=== PATIENT | female | born 1965 | race Caucasian/White ===

== ENCOUNTER → 2016-10-06 | Outpatient (REF) | payer BC | LOC: M LAB REF 16:07 | PROVIDERS: ATTEND Ophthalmology | DX: H02.831 Dermatochalasis of right upper eyelid (principal); H02.834 Dermatochalasis of left upper eyelid ==

== ENCOUNTER → 2019-11-10 | Outpatient (CLI) | payer OTHER | LOC: M LABSMTC 09:51 | PROVIDERS: ATTEND Physician Assistant Surgical | DX: Z11.59 Encounter for screening for other viral diseases (principal) ==

== ENCOUNTER → 2020-05-08 | Outpatient (CLI) | payer OTHER ==
--- NOTE | 2020-05-15 10:25 | REP ---
INDICATION: VENOUS INSUFFIENCY. Repeat dictation. The study was acquired on 08 May 2020 and is presented to me for repeat dictation on 15 May 2020. COMPARISON: None. TECHNIQUE: Duplex venous lower extremity ultrasound with reflux evaluation, bilateral exam. FINDINGS: The deep veins are anechoic and fully compressible from the groin to the popliteal fossa in the right and left lower extremity. Color flow imaging is homogeneous. Spectral Doppler interrogation demonstrates intact respiratory variation in flow and normal manual augmentation of flow. There is no evidence of deep vein thrombosis. Reflux findings: In the right lower extremity venous system there is no evidence of observable reflux either in the superficial or deep system. The greater saphenous vein measures 6.5 mm in greatest diameter at the proximal saphenofemoral junction, 1.8 mm at mid thigh, and 2.0 mm at the knee. The lesser saphenous vein is 2.0 mm in diameter. On the left, there is minimal reflux with the bed tipped in the common femoral and proximal femoral vein deep system only. No superficial reflux is observed. Greater saphenous vein dimensions on the left are 5.2, 2.9, and 2.4 mm in the proximal, mid thigh, and knee level respectively. The lesser saphenous vein on the left measures 1.8 mm., IMPRESSION: Negative right and left lower extremity duplex venous ultrasound. No evidence of deep vein thrombosis. There is minimal deep system reflux on the left. No superficial system reflux is observed on either side. No deep system reflux on the right. <Electronically signed by Chi Medina > 05/15/20 1021
== END ==
LOC: M RAD 10:36
PROVIDERS: ATTEND Surgery Vascular Surgery
DX: I87.2 Venous insufficiency (chronic) (peripheral) (principal)

== ENCOUNTER → 2021-02-27 | Outpatient (CLI) | payer OTHER ==
--- NOTE | 2021-02-27 15:23 | REPMRS ---
Patient History The patient states she had a clinical breast exam on 01-28-2021. Patient is postmenopausal. No known family history of cancer. Taking hormonal contraceptives for 8 years. Patient states no breast complaints today. Patient has signed MRS History Sheet. Digital Woman Screen Mammo: February 27, 2021 - Exam #: [id number] Bilateral CC and MLO view(s) were taken. Technologist: Yolanda Moore Oiler Bander Prior study comparison: June 25, 2019, bilateral screening 3D/tomosynthesis, performed at [facility]. May 17, 2018, bilateral screening 3D/tomosynthesis, performed at [facility]. FINDINGS: The breast tissue is almost entirely fat. Screening. Digital screening (2D) mammography was performed bilaterally in the CC and MLO projections. Additionally, breast tomosynthesis (3D mammography) was performed bilaterally in the CC and MLO projections. Todays exam was compared to the prior exam/exams. By history, the patient has no complaints of a palpable breast abnormality or other significant breast complaints. The Volpara volumetric breast density category is A, the breasts are almost entirely fatty. The breasts are unchanged in size and shape. There are no caprice-soft tissue densities or spiculated masses. There is no internal architectural distortion. There are no suspicious caprice-calcific clusters. Skin thickening or nipple retraction is not present. IMPRESSION: BI-RADS Category 2- Benign Findings. There is no evidence of malignant alteration of the breasts. Followup examination recommended in one year. This mammogram was read with the assistance of [employer],an FDA approved computer aided detection system for mammography. Negative x-ray reports should not delay surgical consultation if a dominant or clinically suspicious mass is present. The lifetime Tyrer-Cuzick score is 7.5% Not all breast cancers can be identified by mammography. Therefore, we recommend that you continue to perform regular breast self-examination and physical examination and then promptly contact your physician of any concerns or changes. Adenosis and dense breasts may obscure an underlying neoplasm. No significant changes when compared with prior studies. Assessment: BI-RADS/ACR category 2 mammogram. Benign Findings. Recommendation Routine screening mammogram of both breasts in 1 year. Electronically Signed By: Nelson Herndon MD 02/27/21 4043
== END ==
LOC: M WHC 14:21
PROVIDERS: ATTEND Obstetrics & Gynecology
DX: Z12.31 Encounter for screening mammogram for malignant neoplasm of breast (principal)

== ENCOUNTER → 2021-08-22 | Outpatient (CLI) | payer OTHER ==
[~2021-08-22] MED LIST: LISI20TA33 PO; LIVA4TAB PO; NEBI5TAB PO
== END ==
LOC: M LABSMTC 11:02
PROVIDERS: ATTEND Anesthesiology
DX: Z01.818 Encounter for other preprocedural examination (principal); Z11.52 Encounter for screening for COVID-19

== ENCOUNTER 2021-08-27 11:14 | Day surgery (SDC) | payer OTHER ==
[~2021-08-27] VITALS: Ht 162.6 cm; Wt 100.7 kg
[~2021-08-27 11:14] MED LIST changes: +NS 1,000 ML IV ONE
[2021-08-27] MEDS ORDERED: hydrALAZINE 20MG/ML 1ML VIAL (J0360 PER 20MG) As Ordered ONE (12:32)
[2021-08-27] MEDS ORDERED: propofoL 200 MG/20 ML VIAL As Ordered ONE (12:32)
[2021-08-27] MEDS ORDERED: LIDOCAINE 2% 100MG/5ML SDV (FOR ANES.) As Ordered ONE (12:32)
[2021-08-27 12:50] VITALS: BP 134/64
== END 2021-08-27 13:05 | disposition home or self-care (01) ==
LOC: M OPP 11:14
PROVIDERS: ATTEND Surgery
DX: Z86.010 Personal history of colon polyps (principal); E78.5 Hyperlipidemia, unspecified; I10 Essential (primary) hypertension; M81.0 Age-related osteoporosis without current pathological fracture; Z98.51 Tubal ligation status; Z88.0 Allergy status to penicillin; Z79.899 Other long term (current) drug therapy
CPT/HCPCS: 45378; J0360

== ENCOUNTER → 2022-05-10 | Outpatient (CLI) | payer BC ==
[~2022-05-10] MED LIST changes: -NS 1,000 ML IV ONE
== END ==
LOC: M WHC 14:30
PROVIDERS: ATTEND Obstetrics & Gynecology
DX: Z12.31 Encounter for screening mammogram for malignant neoplasm of breast (principal); M81.0 Age-related osteoporosis without current pathological fracture

== ENCOUNTER → 2022-10-08 | Outpatient (CLI) | payer BC | LOC: M WHC 13:59 | PROVIDERS: ATTEND Obstetrics & Gynecology | DX: M81.0 Age-related osteoporosis without current pathological fracture (principal) ==

== ENCOUNTER → 2023-09-01 | Outpatient (CLI) | payer BC, OTHER | LOC: M WHC 14:59 | PROVIDERS: ATTEND Advanced Practice Midwife | DX: Z12.31 Encounter for screening mammogram for malignant neoplasm of breast (principal) ==

== ENCOUNTER → 2024-01-06 | Outpatient (CLI) | payer BC ==
[2024-01-06 17:35] LABS: HEMOGLOBIN 13.9 g/dl (12.0-15.5); MEAN CORPUSCULAR HEMOGLOBIN 32.3 pg (27.0-33.0); MEAN CORPUSCULAR HGB CONC 33.1 g/dl (32.0-36.5); MEAN CORPUSCULAR VOLUME 97.4 fl (80.0-96.0); PLATELET COUNT, AUTOMATED 277 10^3/uL (150-450); RED BLOOD COUNT 4.31 10^6/uL (4.00-5.40)
[2024-01-06 17:57] LABS: ALBUMIN 3.9 G/DL (3.2-5.2); ALKALINE PHOSPHATASE 76 U/L (46-116); ALT/SGPT 34 U/L (7.0-40); AST/SGOT 20 U/L (<34); BILIRUBIN,TOTAL 0.4 MG/DL (0.3-1.2); BLOOD UREA NITROGEN 10 MG/DL (9-23); CALCIUM LEVEL 9.6 MG/DL (8.5-10.1); CARBON DIOXIDE LEVEL 24 MMOL/L (20-31); CHLORIDE LEVEL 106 MMOL/L (98-107); CHOLESTEROL LEVEL 127 MG/DL (<200); CHOLESTEROL RISK RATIO 3.06 (<5); CREATININE FOR GFR 0.59 MG/DL (0.55-1.30); GLOMERULAR FILTRATION RATE > 60.0 (>51); GLUCOSE, FASTING 85 MG/DL (60-100); HDL CHOLESTEROL 41.4 MG/DL (>40); LDL CHOLESTEROL 68.8 MG/DL (<100); NON-HDL-C 85.6 MG/DL; POTASSIUM SERUM 4.5 MMOL/L (3.5-5.1); SODIUM LEVEL 140 MMOL/L (136-145); TOTAL PROTEIN 6.9 G/DL (5.7-8.2); TRIGLYCERIDES LEVEL 84 MG/DL (<150)
[2024-01-09 07:28] LABS: WHITE BLOOD COUNT 8.1 10^3/uL (4.0-10.0)
== END ==
LOC: M WUC 12:58
PROVIDERS: ATTEND Physician Assistant
DX: I10 Essential (primary) hypertension (principal); E78.5 Hyperlipidemia, unspecified